=== PATIENT | male | born 1975 | race Caucasian/White ===

== ENCOUNTER 2017-05-27 14:09 | Emergency (ER) | payer MEDICAID ==
[~2017-05-27] VITALS: Ht 157.5 cm; Wt 57.4 kg
[2017-05-27 14:18] VITALS: BP 136/95
--- NOTE | 2017-05-27 14:21 | NUR ---
Patient ambulated to [facility] with family to be evaluated as fast track by Dr. Richards.
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
--- NOTE | 2017-05-27 14:23 | NUR ---
Dr. Richards evaluating patient in [facility].
[2017-05-27] MEDS ORDERED: KETOROLAC 30 MG/ML VIAL IM ONE (14:25)
[2017-05-27] MEDS ORDERED: HYDROcodone/APAP 5/325 MG 1 TAB TAB PO ONE (14:25)
--- NOTE | 2017-05-27 14:25 | NUR ---
Patient taken to XRAY via wheelchair by tech.
--- NOTE | 2017-05-27 14:42 | NUR ---
Dr. Richards re-evaluating patient in [facility].
[2017-05-27 15:05] VITALS: BP 132/98
--- NOTE | 2017-05-27 15:05 | NUR ---
Patient discharged with v/s stable. Written and verbal after care instructions given and explained. Patient alert, oriented and verbalized understanding of instructions. Ambulatory with steady gait. All questions addressed prior to discharge. ID band removed. Patient advised to follow up with PMD. Rx of NAROSYN, NORCO given. Patient educated on indication of medication including possible reaction and side effects. Opportunity to ask questions provided and answered.
== END 2017-05-27 15:05 | disposition home or self-care (01) ==
LOC: MED 14:09
DX: S52.202A Unspecified fracture of shaft of left ulna, initial encounter for closed fracture (principal); R03.0 Elevated blood-pressure reading, without diagnosis of hypertension; Z88.0 Allergy status to penicillin; V17.4XXA Pedal cycle driver injured in collision with fixed or stationary object in traffic accident, initial encounter; Y93.I9 Activity, other involving external motion; Y99.8 Other external cause status; Y92.410 Unspecified street and highway as the place of occurrence of the external cause
CPT/HCPCS: 29125; 73090; 96372; 99284; J1885